=== PATIENT | female | born 1975 | race Caucasian/White ===

== ENCOUNTER → 2019-04-15 | Outpatient (CLI) | payer OTHER ==
--- NOTE | 2019-04-15 08:58 | XR ---
EXAMINATION TYPE: XR knee complete RT DATE OF EXAM: 04/15/2019 COMPARISON: NONE HISTORY: Pain TECHNIQUE: Four views are submitted. FINDINGS: There is marked narrowing and hypertrophic spurring along the medial compartment the knee joint. Arth ropathy of the patellofemoral joint seen with suprapatellar bursal fluid collection.. Osseous struct ures are intact. No acute fracture seen. IMPRESSION: 1. Severe osteoarthritis with suprapatellar bursal fluid collection. Correlate with MRI.
== END | disposition home or self-care (01) ==
LOC: RADXRYALE 08:42
PROVIDERS: ATTEND Physician Assistant Medical
DX: M17.11 Unilateral primary osteoarthritis, right knee (principal)

== ENCOUNTER → 2019-05-07 | Outpatient (CLI) | payer OTHER ==
--- NOTE | 2019-05-09 15:56 | MR ---
EXAMINATION TYPE: MR knee RT wo con DATE OF EXAM: 05/07/2019 COMPARISON: 04/15/2019 radiographs HISTORY: 43-year-old female Pain in right knee TECHNIQUE: Multiplanar, multisequence imaging of the right knee is performed without IV contrast. FINDINGS: ACL, PCL, and LCL complex appear intact. There is either fluid prominently distending the MCL or partial tear involving the deep femoral inser tional fibers. The medial compartment shows severe loss of articular cartilage along the mid aspect of the joint wit h a diffusely degenerative, torn, and extruded medial meniscus. Bulky marginal spurring, bone on bone articulation with extensive subchondral marrow signal changes including sclerosis. Suspect a tiny peripheral tear of the posterior horn of the lateral meniscus at the attachment site o f the meniscal femoral ligament. Otherwise, the remainder of the meniscus is intact. Mild marginal sp urring without focal chondral defect seen in the lateral compartment. Marginal spurring in the patellofemoral compartment with mild irregular cartilage loss along the medi al patellar facet. Multilocular ganglion cyst is present posteriorly in the knee joint measuring 2.5 x 1.6 cm. There is a loose body in the anterior infrapatellar joint space measuring 6 mm. Moderate knee joint effusion with mild chronic synovitis. There is also a small Crain's cyst measurin g 3.4 x 2.6 x 1.0 cm extending into the region of the pes anserinus bursa. Additional prominent fluid extending along the popliteus tendon sheath. Normal popliteal artery anatomy. Mild generalized muscular atrophy. Extensive red marrow hyperplasia is demonstrated and can be seen in the setting of anemia, obesity, smoking, and chronic disease. IMPRESSION: 1. End-stage medial compartment osteoarthrosis with a diffusely degenerative, torn, and extruded medi al meniscus. 2. Findings may represent a tiny peripheral tear of the posterior horn of the lateral meniscus at the attachment site of the meniscofemoral/Wrisberg ligament. 3. Unclear if there is prominent underlying joint fluid pushing on the MCL versus a partial tear invo lving the deep femoral insertional fibers. 4. Mild overall degenerative change in the patellofemoral compartment. 5. Moderate joint effusion with mild chronic synovitis and a small Crain's cyst. Crain's cyst fluid e xtends into the region of the pes anserinus bursa where a mild bursitis may be present. 6. Prominent red marrow hyperplasia can be seen in the setting of anemia, obesity, smoking, and chron ic disease.
== END | disposition home or self-care (01) ==
LOC: RADMRIMAIN 07:54
PROVIDERS: ATTEND Family Medicine
DX: M17.11 Unilateral primary osteoarthritis, right knee (principal); M23.351 Other meniscus derangements, posterior horn of lateral meniscus, right knee; M65.861 Other synovitis and tenosynovitis, right lower leg

== ENCOUNTER 2020-10-06 08:19 | Day surgery (SDC) | payer OTHER ==
[2020-10-05 08:34] VITALS: BMI 39.4
[~2020-10-06 08:19] MED LIST: LACTATED RINGERS 1,000 ML IV SCH; LIDOCAINE 1% (10MG/ML) FOR IV START INTRADERMA PRN
[2020-10-06 08:40] VITALS: RESP 16; TEMP 97
[2020-10-06] MEDS ORDERED: LIDOCAINE 1% INJ 10MG/ML (20 ML MDV) ONE (09:26)
[2020-10-06] MEDS ORDERED: PROPOFOL 10 MG/ML 20 ML VIAL IV ONE (09:26)
--- NOTE | 2020-10-06 09:44 | P.PCN ---
Date of Procedure: 10/06/20 Description of Procedure: BRIEF HISTORY: Patient is a 44-year-old female presenting for outpatient esophagogastroduodenoscopy for evaluation of epigastric abdominal pain and GERD. Patient has been having worsening symptoms over the past few months. She has tried [id number] Tums and Pepcid therapy as well as a course of Prilosec. Recently she was seen by her primary care physician and started on Protonix therapy but has not been taking the medicine consistently as she reports forgetting to take it. She reports multiple trigger foods such as greasy foods which worsen symptoms. PROCEDURE PERFORMED: Esophagogastroduodenoscopy with biopsy. PREOPERATIVE DIAGNOSIS: Epigastric abdominal pain, GERD. ESTIMATED BLOOD LOSS: Minimal. IV sedation per anesthesia. PROCEDURE: After informed consent was obtained, the patient was brought into the endoscopy unit. IV sedation was administered by Anesthesia under continuous monitoring. Initially the Olympus GIF-190 video endoscope was inserted into the mouth. Esophagus intubated without any difficulty. It was gradually advanced into the stomach and duodenum and carefully examined. The bulb and the second part of the duodenum appeared normal, with biopsies taken to rule out celiac sprue. The scope at this time was withdrawn to the stomach, adequately insufflated with air, and upon careful examination, mucosa of the antrum, body, cardia and the fundus appeared normal, except for some mild punctate erythema in antrum and body suggestive of gastritis with biopsies taken. The scope was then withdrawn into the esophagus. The GE junction was located at 37 cm from the incisors and biopsied. The esophagus appeared normal, mid esophageal biopsies to rule out reflux esophagitis. There were no erosions or ulcerations seen and the patient tolerated the procedure well. IMPRESSION: 1. Mild gastritis. 2. Biopsies of the duodenum, antrum and body, GE junction and midesophagus. RECOMMENDATIONS: The findings of this examination were discussed with the patient and her family. Okay to resume diet. Okay to resume medications. Patient continue Protonix 40 mg daily, patient instructed cecum medication 15-30 minutes before eating. Await pathology from biopsies. Follow up with primary care physician as schedu led.
[2020-10-06 09:59] VITALS: BP 146/74; PULSE 66
== END 2020-10-06 10:19 | disposition home or self-care (01) ==
LOC: ORWHC2ENDO 08:19
PROVIDERS: ATTEND Internal Medicine
DX: K29.50 Unspecified chronic gastritis without bleeding (principal); K21.00 Gastro-esophageal reflux disease with esophagitis, without bleeding; F31.9 Bipolar disorder, unspecified; Z88.2 Allergy status to sulfonamides; Z90.49 Acquired absence of other specified parts of digestive tract; Z96.651 Presence of right artificial knee joint
CPT/HCPCS: 81025; 88305; 43239; J2001; J2704